=== PATIENT | female | born 1955 | race Caucasian/White ===

== ENCOUNTER 2019-03-16 21:04 | Inpatient (IN) | payer MEDICAID ==
[~2019-03-16] VITALS: Ht 144.8 cm; Wt 49.9 kg
[2019-03-16 21:14] VITALS: Ht 144.8 cm; Wt 49.9 kg
--- NOTE | 2019-03-16 21:20 | NUR ---
PT RESTING IN BED, AAOX4 WITH C/O 10/10 PAIN TO LT SHOULDER/NECK/FACE AND RT KNEE S/P SYNCOPAL EPISODE THIS AM. PER DAUGHTER, PT DOES NOT REMEMBER INCIDENT, JUST WAKING UP AFTERWARD. PT NOTED WITH SWELLING/DISCOLORATION TO LT EYE/CHEEK. NO OBVIOUS DEFORMITIES NOTED AT THIS TIME. DAUGHTER AT BEDSIDE.
--- NOTE | 2019-03-16 22:30 | NUR ---
PT RESTING IN BED WITH FAMILY WITH NO SIGNS OF DISTRESS.
[2019-03-16 22:33] LABS: BASOPHIL % 1.1 % (0-2); PLATELET COUNT 203 x10^3mcL (130-400); RED CELL DISTRIBUTION WIDTH 12.8 % (11.5-14.5)
[2019-03-16 22:45] LABS: CARBON DIOXIDE 25.4 mmol/L (21-32); CHLORIDE SERUM 107 mmol/L (98-107); CREATININE SERUM 0.9 mg/dL (0.6-1.0); GFR1 > 60 mL/min; GLUCOSE SERUM 111 mg/dL (74-106); POTASSIUM SERUM 3.7 mmol/L (3.5-5.1); SODIUM SERUM 143 mmol/L (136-145)
[2019-03-16 22:53] LABS: ALBUMIN 3.7 g/dL (3.4-5.0); ALKALINE PHOSPHATASE 71 U/L (46-116); ALT/SGPT 20 U/L (14-59); AST/SGOT 18 U/L (15-37); BILIRUBIN TOTAL 0.31 mg/dL (0.20-1.00)
--- NOTE | 2019-03-16 23:10 | NUR ---
PT RESTING IN BED WITH NO SIGNS OF DISTRESS AT THIS TIME. FAMILY AT BEDSIDE.
[2019-03-16 23:56] LABS: PHOSPHOROUS 2.8 mg/dL (2.5-4.9)
[2019-03-16 23:57] LABS: CHOLESTEROL/HDL RATIO 4.1
[2019-03-17 00:06] LABS: FREE T4 1.03 ng/dL (0.76-1.46); T4(THYROXINE) 8.9 ug/dL (4.7-13.3)
--- NOTE | 2019-03-17 00:08 | NUR ---
REPORT GIVEN TO LEN JARA.
[2019-03-17 00:24] VITALS: BP 170/68
--- NOTE | 2019-03-17 00:27 | NUR ---
RECEIVED PT FROM MAREK ARZATE. PT A/OX4. DENIES PAIN. DENIES SOB ON RA. IV PATENT. ORIENTED PT TO ROOM AND SURROUNDINGS. CALL LIGHT WITHIN REACH, BED IN LOW POSITION. DAUGHTER AT BEDSIDE. WILL CONTINUE TO MONITOR.
--- NOTE | 2019-03-17 00:27 | NUR ---
RECEIVED PT FROM ED VIA [facility]. ORIENTED PT TO ROOM AND SURROUNDINGS. IV NOTED TO BRIAN PATENT AND INTACT .TELE 14 PLACED ON PT READING NSR. INSTRUCTED PT ON THE USE OF CALL LIGHT FOR ASSISTANCE. ENDORSED PT TO PRIMARY NURSE LEN
[2019-03-17 00:42] LABS: T3 TOTAL 1.07 ng/mL
--- NOTE | 2019-03-17 01:31 | NUR ---
PT RESTING IN NO ACUTE DISTRESS. RR EVEN AND UNLABORED. CALL LIGHT WITHIN REACH, BED IN LOW POSITION. WILL CONTINUE TO MONITOR.
--- NOTE | 2019-03-17 07:26 | NUR ---
REPORT TAKEN FROM SHEET MANUFACTURING SUPERVISOR NURSE AT THE BEDSIDE, PATIENT AWAKE AND ALERT FOR REPORT, DENIED PAIN AT THIS TIME, WILL CONTINUE TO MONITOR.
[2019-03-17 08:56] LABS: BASOPHIL % 1.3 % (0-2); PLATELET COUNT 207 x10^3mcL (130-400); RED CELL DISTRIBUTION WIDTH 12.9 % (11.5-14.5)
[2019-03-17 09:08] VITALS: BP 124/53
[2019-03-17 09:11] LABS: CALCIUM 8.2 mg/dL (8.5-10.1); CHLORIDE SERUM 106 mmol/L (98-107); CREATININE SERUM 0.7 mg/dL (0.6-1.0); GFR1 > 60 mL/min; GLUCOSE SERUM 87 mg/dL (74-106); SODIUM SERUM 142 mmol/L (136-145)
--- NOTE | 2019-03-17 10:36 | NUR ---
ECHOCARDIOGRAM PENDING-HAVING ULTRASOUND
--- NOTE | 2019-03-17 12:55 | NUR ---
ECHOCARDIOGRAM PENDING-PATIENT WITH NURSE
[2019-03-17 13:24] VITALS: BP 120/54
--- NOTE | 2019-03-17 14:12 | NUR ---
Discount pharmacy card and list to low cost medical clinics given to patient by Stacie.
[2019-03-17 16:27] LABS: UA SPECIFIC GRAVITY <=1.005 (1.005-1.035); microscopic required? YES; urine erythrocyte 2+ (NEGATIVE)
[2019-03-17 16:39] LABS: AMPHETAMINE QUAL UR NONE DETECTED (See below)
[2019-03-17 16:49] VITALS: BP 129/54
--- NOTE | 2019-03-17 19:23 | NUR ---
REPORT GIVEN TO ROCKET SCIENTIST NURSE, CARE ENDORSED
--- NOTE | 2019-03-17 19:30 | NUR ---
PT RECIEVED FROM DAY NURSE. PT RESTING IN BED AT THIS TIME. DENIES PAIN OR DISCOMFORT. A/O X4, NUERO CHECK WNL. CALM AND COOPERATIVE AT THIS TIME. TELE 14, NSR. DENIES CP, NV, DIZZINESS, AND PALPATATIONS. PALPABLE PULSES, NO EDEMA NOTED AT THIS TIME. BREATHING E/U ON RA. DENIES SOB. ABD SOFT AND ROUND, DENIES PAIN TO PALPATION. L EYE SWOLLEN AND BRUSIED. DENIES DISCOMFORT AT THIS TIME. RAC IV, CDI. BED AT LOWEST POSITION. CALL LIGHT WITHIN REACH. WILL CONTINUE TO MONITOR.
[2019-03-17 21:01] VITALS: BP 129/59
--- NOTE | 2019-03-17 21:29 | NUR ---
PT COMPLAINING OF L EYE PAIN. MEDICATED WITH PRN NORCO. WILL CONTINUE TO MONITOR.
--- NOTE | 2019-03-18 | NUR ---
PT RESTING IN BED AT THIS TIME. NO S/S OF PAIN OR DISCOMFORT NOTED AT THIS TIME. BREATHING E/U. BED AT LOWEST POSITION. CALL LIGHT WITHIN REACH. WILL CONTINUE TO MONITOR.
[2019-03-18 04:30] VITALS: BP 137/65
--- NOTE | 2019-03-18 05:47 | NUR ---
PT RESTING IN BED AT THIS TIME. DENIES PAIN OR DISCOMFORT. BREATHING E/U ON RA. NO SIGNS OF DISTRESS NOTED AT THIS TIME. ALL NEEDS AND CONCERNS ADDRESSED THIS SHIFT. BED AT LOWEST POSITION. CALL LIGHT WITHIN REACH. WILL ENDORSE TO DAY NURSE.
[2019-03-18 06:33] LABS: BASOPHIL % 1.3 % (0-2); PLATELET COUNT 168 x10^3mcL (130-400); RED CELL DISTRIBUTION WIDTH 12.9 % (11.5-14.5)
[2019-03-18 06:43] LABS: CALCIUM 7.6 mg/dL (8.5-10.1); CARBON DIOXIDE 25.7 mmol/L (21-32); CHLORIDE SERUM 108 mmol/L (98-107); CREATININE SERUM 0.7 mg/dL (0.6-1.0); GFR1 > 60 mL/min; GLUCOSE SERUM 86 mg/dL (74-106); MAGNESIUM 1.8 mg/dL (1.8-2.4); PHOSPHOROUS 3.3 mg/dL (2.5-4.9); SODIUM SERUM 140 mmol/L (136-145)
--- NOTE | 2019-03-18 07:22 | NUR ---
RECEIVED REPORT FROM MARVEL JARA. PATIENT RESTING COMFORTABLY IN BED WITH ALL NEEDS MET. IV TO RAC IS PATENT AND INFUSING NS @ 100 ML/HR. NO REDNESS OR PAIN. TELE # [address] PT DENIES CHEST PAIN. PT ON ROOM AIR. NO C/O SOB AND NO DISTRESS NOTED. ALL QUESTIONS AND CONCERNS ADDRESSED.
[2019-03-18 08:17] VITALS: BP 152/60
--- NOTE | 2019-03-18 09:13 | NUR ---
IN TO SEE PATIENT AND ASSESS NEEDS. PATIENT RESTING COMFORTABLY IN BED WITH ALL NEEDS MET.
[2019-03-18] MEDS ORDERED: ZES10 PO (10:40)
[2019-03-18] MEDS ORDERED: NOR5 PO (10:40)
[2019-03-18 11:52] VITALS: BP 133/55
--- NOTE | 2019-03-18 12:50 | NUR ---
IN TO SEE AND ASSESS PATIENT BEFORE LUNCH. PATIENT SITTING COMFORTABLY IN EBD WITH DAUGHTER AT BEDSIDE. ALL NEEDS MET. WILL REASSESS AFTER LUNCH.
[2019-03-18 13:17] VITALS: BP 133/55
--- NOTE | 2019-03-18 13:43 | NUR ---
IN TO SEE AND ASSESS PATIENT AFTER LUNCH. PATIENT SITTING AT EDGE OF BED WITH DAUGHTER AT BEDSIDE. PATIENT REPORTS NEEDING TO USE THE RESTROOM AND AMBULATED UNASSISTED. ALL NEEDS MET.
--- NOTE | 2019-03-18 16:55 | NUR ---
SPOKE WITH MAHOGANY AND UPDATED ON DR MCKENZIE'S NOTES. CONFIRMED THAT PATIENT IS OK TO DISCHARGE. MAHOGANY AGREED. PATIENT AND DAUGHTER NOTIFIED.
--- NOTE | 2019-03-18 17:37 | NUR ---
PATIENT STABLE FOR DISCHARGE PER MD. DISCHARGE INSTRUCTIONS AND SUMMARY DISCUSSED WITH PATIENT AND DAUGHTER. BOTH VERBALIZED UNDERSTANDING AND AGREE TO FOLLOW UP APPOINTMENT. TELE MONITOR REMOVED AND MONITOR NOTIFIED. IV REMOVED AND IV POLE CLEARED. ID BANDS CUT. PATIENT ESCORTED TO LOBBY VIA WHEELCHAIR.
== END 2019-03-18 17:44 | disposition home or self-care (01) | DRG 384 ==
LOC: ED 21:04 → DU 23:30
PROVIDERS: Emergency Medicine; ADMIT Internal Medicine
DX: S80.01XA Contusion of right knee, initial encounter (principal); G90.9 Disorder of the autonomic nervous system, unspecified; R55 Syncope and collapse; S00.12XA Contusion of left eyelid and periocular area, initial encounter; S80.02XA Contusion of left knee, initial encounter; I10 Essential (primary) hypertension; E78.5 Hyperlipidemia, unspecified; Z68.1 Body mass index [BMI] 19.9 or less, adult; W18.39XA Other fall on same level, initial encounter; Y92.018 Other place in single-family (private) house as the place of occurrence of the external cause
CPT/HCPCS: 83880; 84439; 97116-GP; G0378; J7030; Q0092